=== PATIENT | male | born 1965 | race Caucasian/White ===

== ENCOUNTER 2016-11-06 13:58 | Inpatient (IN) | payer OTHER ==
[~2016-11-06] VITALS: Ht 175.3 cm; Wt 86.6 kg
[2016-11-07 00:06] LABS: *AMPHETAMINE, URINE NEGATIVE (NEGATIVE); *BARBITURATE, URINE NEGATIVE (NEGATIVE); *CANNABINOID, URINE NEGATIVE (NEGATIVE); *COCCAINE, URINE NEGATIVE (NEGATIVE); *OPIATE, URINE NEGATIVE (NEGATIVE); *PHENCYCLIDINE SCREEN,URINE NEGATIVE (NEGATIVE)
--- NOTE | 2016-11-07 00:15 | NUR ---
Intake Assessment Assessment done at intake office. Patient is alert & oriented x4. Pt is ambulatory with a steady gait. Speech is clear and audible. Pt is able to answer questions. Pt appears anxious and is cooperative during interviews. Vitals noted B/P 154/92, CA 74, RR 16, Temp 96.8, O2Sat 97%. Pt is here for ETOH dependence. No seizure history noted. Pt has allergies to Penicillin. Pt brought home medications. Explained to pt unit protocols. Pt verbalized understanding.
[2016-11-07] MEDS ORDERED: MAGNESIUM HYDROXIDE 30 ML LIQUID UDC PO PRN (00:45)
[2016-11-07] MEDS ORDERED: LORAZEPAM 1 MG TABLET PO PRN (00:45)
[2016-11-07] MEDS ORDERED: HYDROXYZINE PAMOATE 25 MG CAPSULE PO PRN (00:45)
[2016-11-07] MEDS ORDERED: LORAZEPAM 2 MG/1 ML VIAL IM PRN (00:45)
[2016-11-07] MEDS ORDERED: MAG HYDROX/AL HYDROX/SIMETH 30 ML LIQUID UDC PO PRN (00:45)
[2016-11-07] MEDS ORDERED: THIAMINE HCL 200 MG/2 ML VIAL IM ONE (00:45)
[2016-11-07] MEDS ORDERED: LOPERAMIDE HCL 2 MG CAPSULE PO PRN ×2 (00:45)
[2016-11-07] MEDS ORDERED: diphenhydrAMINE 50 MG CAPSULE PO PRN (00:45)
[2016-11-07] MEDS ORDERED: MIRALAX 17 GM POWD.PACK PO PRN (00:45)
[2016-11-07] MEDS ORDERED: DICYCLOMINE HCL 20 MG TABLET PO PRN (00:45)
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
--- NOTE | 2016-11-07 01:30 | NUR ---
Pt reported that he is on Coumadin for DVT. Pt last dose taken was couple of days prior to admission. Pt cannot remember exact day.
[2016-11-07 01:32] LABS: BASOPHILS # (AUTO) 0.1 K/uL (0.0-8.0); EOSINOPHILS # (AUTO) 0.1 K/uL (0.0-0.7); EOSINOPHILS % (AUTO) 2.1 % (0.0-7.0); HEMOGLOBIN 13.5 G/DL (14.0-18.0); LYMPHOCYTES # (AUTO) 2.2 K/UL (0.8-4.8); LYMPHOCYTES % (AUTO) 34.4 % (20.5-51.5); MEAN CORPUSCULAR HEMOGLOBIN 33.4 UUG (27.0-31.0); MEAN CORPUSCULAR HGB CONC 35 g/dL (32.0-37.0); MEAN CORPUSCULAR VOLUME 96.4 FL (82.0-92.0); MONOCYTES # (AUTO) 0.6 K/UL (0.1-1.30); MONOCYTES % (AUTO) 8.7 % (0.0-11.0); NEUTROPHILS # (AUTO) 3.5 K/UL (1.8-8.9); NEUTROPHILS % (AUTO) 53.8 % (38.5-71.5); PLATELET COUNT (AUTO) 315 K/UL (150-450); RED BLOOD CELL COUNT(AUTO) 4.04 MIL/UL (4.7-6.1); WHITE BLOOD COUNT (AUTO) 6.5 K/UL (4.0-11.2)
[2016-11-07] MEDS: IBUPROFEN 400 MG TABLET PO PRN ×2 (01:33→18:02)
[2016-11-07] MEDS: ONDANSETRON ODT 4 MG TAB.RAPDIS SL PRN ×2 (01:34→09:32)
[2016-11-07] MEDS: CLONIDINE HCL 0.1 MG TABLET PO PRN (01:34)
--- NOTE | 2016-11-07 01:34 | NUR ---
PRN Clonidine, Motrin & Zofran Patient complains of sweating, anxiety, 8/10 generalized body aches & nausea. Patient appears anxious in bed with facial grimacing noted. PRN Clonidine, Motrin & Zofran SL administered as ordered. Will continue to monitor patient.
[2016-11-07] MEDS ORDERED: ONDANSETRON ODT 4 MG TAB.RAPDIS ONE (01:36)
[2016-11-07] MEDS ORDERED: THIAMINE HCL 200 MG/2 ML VIAL ONE (01:36)
[2016-11-07] MEDS ORDERED: CLONIDINE HCL 0.1 MG TABLET ONE (01:37)
[2016-11-07] MEDS ORDERED: IBUPROFEN 400 MG TABLET ONE (01:38)
[2016-11-07] MEDS ORDERED: diphenhydrAMINE 50 MG CAPSULE ONE (01:38)
[2016-11-07 01:47] LABS: BILIRUBIN,TOTAL 0.2 mg/dL (0.2-1.0); CREATININE 0.7 mg/dL (0.6-1.3); MAGNESIUM 1.7 mg/dL (1.8-2.4); POTASSIUM 3.4 mmol/L (3.5-5.1); TOTAL PROTEIN, SERUM 6.4 g/dL (6.4-8.2)
[2016-11-07 01:58] LABS: THYROID STIMULATING HORMONE 1.085 mIU/mL (0.358-3.740)
[2016-11-07] MEDS: LORAZEPAM 1 MG TABLET PO PRN ×2 (02:24→09:32)
--- NOTE | 2016-11-07 02:24 | NUR ---
PRN Ativan Patient complains of symptoms of withdrawal. Pt noted with anxiety, fine tremors, sweating, nausea & moderate headache. CIWA 7 noted. Vitals WNL. B/P 111/65, HR 89, RR 16, O2Sat 98%. PRN Ativan 1mg administered as ordered. Will continue to monitor patient.
[2016-11-07] MEDS ORDERED: LORAZEPAM 1 MG TABLET ONE (02:28)
[2016-11-07] MEDS ORDERED: MAGNESIUM OXIDE 400 MG TABLET PO ONE (02:30)
[2016-11-07] MEDS ORDERED: POTASSIUM CHLORIDE 20 MEQ TAB.PRT.SR PO ONE (02:30)
--- NOTE | 2016-11-07 02:34 | NUR ---
Notified MD Contreras that patient's Mag level is 1.7L & Potassium level is 3.4. New orders were entered. Orders noted and carried out.
[2016-11-07] MEDS ORDERED: MAGNESIUM OXIDE 400 MG TABLET ONE (02:39)
[2016-11-07] MEDS ORDERED: POTASSIUM CHLORIDE 20 MEQ TAB.PRT.SR ONE (02:43)
--- NOTE | 2016-11-07 03:24 | NUR ---
PRN Reassessment Patient verbalized improved nausea, decreased in anxiey. Pt still with noted with very mild headache. Last COWS 3 noted. Will continue to monitor patient.
[2016-11-07] MEDS ORDERED: BISM262T15 PO (03:59)
[2016-11-07] MEDS ORDERED: HYDR-3657 PO (03:59)
[2016-11-07] MEDS ORDERED: WARF5TAB6 PO (03:59)
[2016-11-07] MEDS ORDERED: TRAZ-144 PO (03:59)
[2016-11-07] MEDS ORDERED: FLUO20TA28 PO (03:59)
[2016-11-07] MEDS ORDERED: RANI150C4 PO (03:59)
[2016-11-07] MEDS ORDERED: LISI2.5T2 PO (03:59)
[2016-11-07] MEDS ORDERED: NALT50TA PO (03:59)
[2016-11-07] MEDS ORDERED: WARF2.5T47 PO (03:59)
[2016-11-07] MEDS ORDERED: FLUO40CA49 PO (03:59)
[2016-11-07] MEDS ORDERED: ASPI1TAB PO (03:59)
[2016-11-07] MEDS ORDERED: NAPH15DR57 OP (03:59)
[2016-11-07] MEDS ORDERED: CLIN-63 PO (03:59)
[2016-11-07 04:00] VITALS: BP 108/56
--- NOTE | 2016-11-07 04:56 | NUR ---
Pt complains of 8/10 severe pain on left leg. Left leg appears swollen, red and warm. Dr. Contreras was notified and ordered to give a one time dose of Toradol 30mg IM to be given now and he will order Doppler FABY in am.
[2016-11-07] MEDS ORDERED: KETOROLAC TROMETHAMINE 30 MG INJ IM ONE (05:00)
[2016-11-07] MEDS ORDERED: KETOROLAC TROMETHAMINE 30 MG INJ ONE (05:14)
--- NOTE | 2016-11-07 05:17 | NUR ---
Toradol given Pt complains of 8/10 on left leg. Pt's left leg is swollen, red and warm to touch. Patient noted to be restless in bed. Pt noted with facial grimacing and moans d/t pain when moving his leg. Toradol 30mg IM administered on right deltoid as ordered. Will reassess in 1 hour. Will continue to monitor patient.
--- NOTE | 2016-11-07 06:17 | NUR ---
PRN Reassessment Patient asleep in bed at this time and appears comfortable. No facial grimacing noted. Pt show no s/s of distress. Safety measures in place. Will continue to monitor patient.
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
[2016-11-07 08:00] VITALS: BP 117/85
[2016-11-07] MEDS ORDERED: DOCUSATE SODIUM 250 MG CAPSULE PO SCH (09:00)
[2016-11-07] MEDS: FOLIC ACID 1 MG TABLET PO SCH (09:27)
[2016-11-07] MEDS: THIAMINE HCL 100 MG TABLET PO SCH (09:27)
[2016-11-07] MEDS: MULTIVITAMINS,THERAPEUTIC TABLET PO SCH (09:27)
--- NOTE | 2016-11-07 09:32 | NUR ---
PRN ATIVAN Patient has CIWA 8, tremors, anxiety. PRN Ativan 1mg given. Will monitor effectiveness
--- NOTE | 2016-11-07 09:32 | NUR ---
PRN ONDANSETRON Patient complained of nausea. PRN ondansetron ODT given, willl monitor effectiveness.
--- NOTE | 2016-11-07 09:45 | NUR ---
START OF SHIFT Received report from shift mechanic nurse. Patient is 50 year old male admitted for medically supervised withdrawal from alcohol. Patient is full code with allergy to penicillin. On assessment this AM: CIWA: 8. Denies chest pain. Recent VS: 128/78 HR 69, R18, T98.4, 0/10 pain and 99% 02 sat room air. Complained of tremors, mild headache (declined prn pain med at this time), anxiety and nausea (prn ondansetron given). PRN Ativan 1mg po tab given, CIWA = 8. Med compliant with AM meds. Patient states he also takes albuterol about twice a day as needed but he ran out of his medication. No wheezing noted, lung sounds clear and 02 sat 96% on assessment (MD notified). Patient was encouraged to attend group meetings today. Will continue to monitor patient. Addendum: 11/07/16 at 1057 by MANDI MANJARREZ RN Patient also has BLE discoloration and edema. Patient reports pain on LLE. Pending ultrasound at this time.
--- NOTE | 2016-11-07 10:32 | NUR ---
DEFER PRN ATIVAN AND ONDANSETRON AND CIWA REASSESSMENT Patient noted laying in bed with eyes closed at this time. Patient appears calm with no respiratory distress.
[2016-11-07 12:00] VITALS: BP 150/82
[2016-11-07] MEDS: LORAZEPAM 1 MG TABLET PO SCH ×3 (12:34→20:36)
[2016-11-07] MEDS ORDERED: TRAZODONE 50 MG TABLET PO PRN (13:45)
[2016-11-07 16:00] VITALS: BP 155/84
--- NOTE | 2016-11-07 16:27 | NUR ---
PRN MAALOX Patient complained of heartburn, pt. received prn maalox. will monitor effective of medication.
[2016-11-07] MEDS ORDERED: WARFARIN SODIUM 5 MG TABLET PO SCH (17:00)
--- NOTE | 2016-11-07 17:27 | NUR ---
REASSESSMENT (PRN MAALOX) Patient reports heartburn resolved.
--- NOTE | 2016-11-07 18:02 | NUR ---
PRN IBUPROFEN Patient complained of LLE pain, 12/09 prn ibuprofen given, will monitor effectiveness of medication
[2016-11-07] MEDS: ENOXAPARIN SODIUM 100 MG/ML DISP.SYRIN SQ SCH (18:05)
--- NOTE | 2016-11-07 18:25 | NUR ---
END OF SHIFT Patient is 50 year old male admitted for medically supervised withdrawal from alcohol. Patient is full code with allergy to penicillin. Most recent CIWA: 3. Patient reports tremors. Patient is receiving routine Ativan po, patient reports it helps with the withdrawals. Patient reports poor appetite but tries to eat his rizwana. Patient denies n/v at this time. Med compliant this shift. PRN ibuprofen given for LLE pain 12/09. Ultrasound on L lower extremity with DVT result, MD aware, patient received his coumadin and enoxaparin as scheduled. plasma processorcage shift manager will continue to monitor patient.
--- NOTE | 2016-11-07 19:02 | NUR ---
REASSESSMENT (PRN IBUPROFEN) Patient reports pain decreased from 7/10 to 4/10.
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
[2016-11-07 20:00] VITALS: BP 142/90
[2016-11-07] MEDS ORDERED: Albuterol (20:21)
[2016-11-07] MEDS: TRAZODONE 100 MG TABLET PO PRN (20:35)
--- NOTE | 2016-11-07 20:35 | NUR ---
PRN Trazodone Patient requested medication for sleep. PRN Trazodone administered as ordered. Will continue to monitor patient.
[2016-11-07] MEDS: FAMOTIDINE 20 MG TABLET PO SCH (20:36)
[2016-11-07] MEDS ORDERED: ALBUTEROL SULFATE 2.5 MG/ 0.5 ML NEBU ONE (21:36)
[2016-11-07] MEDS ORDERED: IPRATROPIUM BROMIDE 0.5 MG/2.5 ML NEBU ONE (21:36)
--- NOTE | 2016-11-07 22:00 | NUR ---
PRN Reassessment Patient asleep in bed and appears comfortable. No shortness of breath noted. Respiration even & unlabored. Safety measures in place. Will continue to monitor patient.
[2016-11-08] VITALS: BP 118/76
[2016-11-08 04:00] VITALS: BP 141/92
[2016-11-08] MEDS: ENOXAPARIN SODIUM 100 MG/ML DISP.SYRIN SQ SCH ×2 (06:08→17:43)
[2016-11-08] MEDS: IBUPROFEN 400 MG TABLET PO PRN ×3 (06:09→20:27)
--- NOTE | 2016-11-08 06:09 | NUR ---
PRN Motrin Patient complains of 7/10 body aches. Pt noted with restlessness and facial grimacing. PRN Motrin administered as ordered. Will reassess in 1 hour. Will continue to monitor patient.
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
--- NOTE | 2016-11-08 07:09 | NUR ---
PRN Reassessment Pt verbalized relief, pt noted with a 4/10 generalized body aches. Patient lying in bed with eyes close. No facial grimacing noted at this time. Will continue to monitor patient.
[2016-11-08] MEDS ORDERED: ALBUTEROL SULFATE 2.5 MG/ 0.5 ML NEBU NEB SCH ×2 (07:35)
[2016-11-08] MEDS ORDERED: IPRATROPIUM BROMIDE 0.5 MG/2.5 ML NEBU NEB SCH ×2 (07:35)
[2016-11-08 08:00] VITALS: BP 133/97
[2016-11-08 08:03] LABS: CREATININE 0.8 mg/dL (0.6-1.3); MAGNESIUM 1.7 mg/dL (1.8-2.4); POTASSIUM 3.8 mmol/L (3.5-5.1)
[2016-11-08] MEDS ORDERED: TUBERCULIN,PURIF.PROT.DERIV. 5 TU/0.1 ML TEST ID ONE (09:00)
[2016-11-08] MEDS: THIAMINE HCL 100 MG TABLET PO SCH (09:24)
[2016-11-08] MEDS: ACETAMINOPHEN 325 MG TABLET PO PRN ×2 (09:24→22:58)
[2016-11-08] MEDS: MULTIVITAMINS,THERAPEUTIC TABLET PO SCH (09:24)
[2016-11-08] MEDS: FOLIC ACID 1 MG TABLET PO SCH (09:24)
[2016-11-08] MEDS: FAMOTIDINE 20 MG TABLET PO SCH ×2 (09:24→20:27)
--- NOTE | 2016-11-08 09:24 | NUR ---
patient complaining of generalized body pain and headache 01/09, Tylenol 650po given. Will notifiy MD for muscle relaxant. will monitor effectiveness of med.
[2016-11-08] MEDS: LORAZEPAM 1 MG TABLET PO SCH ×3 (09:25→20:27)
[2016-11-08] MEDS: LISINOPRIL 10 MG TABLET PO SCH (09:25)
--- NOTE | 2016-11-08 10:00 | NUR ---
START OF SHIFT Received report from warehouse worker 2nd shift nurse. Patient is 50 year old male admitted for medically supervised withdrawal from alcohol. Patient is full code with allergy to penicillin. On assessment this AM: CIWA: 2. Vitals WNL. Patient's main complaints are generalized body ache and headache 8/10 and weakness, denies SOB and chest pain. Patient was encouraged to drink fluids and given bottled drinks at bedside. Patient ate 35% of his breakfast. Med compliant with AM meds. PRN Tylenol given, notified about patient complaining of body aches. Patient was encouraged to attend group meetings today. Will continue to monitor patient.
--- NOTE | 2016-11-08 10:24 | NUR ---
REASSESSMENT PRN TYLENOL Patient reports decreased pain level after 1 hour, pain level from 8/10 to 6/10.
--- NOTE | 2016-11-08 10:50 | NUR ---
Therapist discussed group attendance with client, informing client that groups are held daily at 11am and 3:30pm. Therapist discussed some benefits of attending, and client related that he would think about attending group today.
[2016-11-08] MEDS ORDERED: BACLOFEN 20 MG TABLET PO PRN (11:30)
[2016-11-08 13:55] VITALS: BP 156/92
[2016-11-08 14:06] LABS: HEPATITIS B SURFACE AG Negative (Negative)
[2016-11-08] MEDS: CLONIDINE HCL 0.1 MG TABLET PO PRN (14:26)
--- NOTE | 2016-11-08 14:26 | NUR ---
PRN CLONIDINE AND IBUPROFEN AND BREATHING TREATMENT Patient complained of anxiety, pain /10 and SOB. Patient received clonidine (BP 151/89), ibuprofen and respiratory therapist administered breathing treatment.
[2016-11-08] MEDS: ALBUTEROL SULFATE 2.5 MG/ 0.5 ML NEBU NEB PRN (14:32)
[2016-11-08] MEDS: IPRATROPIUM BROMIDE 0.5 MG/2.5 ML NEBU NEB PRN (14:32)
[2016-11-08] MEDS ORDERED: MAGNESIUM OXIDE 400 MG TABLET PO ONE (15:00)
--- NOTE | 2016-11-08 15:26 | NUR ---
REASSESSMENT (PRN CLONIDINE AND IBUPROFEN AND BREATHING TREATMENT) Patient reported decreased anxiety, decreased pain 5/10 and improved breathing.
[2016-11-08 16:00] VITALS: BP 142/89
[2016-11-08] MEDS ORDERED: WARFARIN SODIUM 2 MG TABLET PO SCH (17:00)
[2016-11-08] MEDS ORDERED: WARFARIN SODIUM 5 MG TABLET PO SCH (17:00)
[2016-11-08] MEDS: WARFARIN SODIUM 5 MG TABLET PO SCH (17:21)
--- NOTE | 2016-11-08 17:25 | NUR ---
MD communication Pt c/o worsening pain in his left leg and intermittent chest pain. Dr Contreras notified, ordered toradol 30mg IM Q6H PRN pain, ECG stat. Orders entered, MD unable to enter orders.
--- NOTE | 2016-11-08 17:43 | NUR ---
PRN KETOROLAC IM injection Patient received prn ketorolac IM injection for pain 01/09. Will continue to monitor effectiveness of medication.
--- NOTE | 2016-11-08 18:43 | NUR ---
REASSESSMENT (PRN KETOROLOC IM INJECTION) Patient reports pain level decreased to 3/10 pain on his LLE.
--- NOTE | 2016-11-08 19:00 | NUR ---
Followed up with EKG, someone will come to the unit to perform procedure. Endorsed to charge nurse and oncoming nurse.
--- NOTE | 2016-11-08 19:24 | NUR ---
EKG done. Results shown Normal sinus rhythm, Normal ECG.
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
[2016-11-08 20:00] VITALS: BP 133/87
--- NOTE | 2016-11-08 20:27 | NUR ---
PRN Motrin Patient complains of 7/10 pain on left lower extremity and moderate headache. Patient noted to be restless with facial grimacing noted. PRN Motrin administered as ordered. Will reassess in 1 hour. Will continue to monitor patient.
[2016-11-08] MEDS: TRAZODONE 100 MG TABLET PO PRN (21:19)
--- NOTE | 2016-11-08 21:19 | NUR ---
PRN Trazodone Patient unable to fall asleep. Pt requesting medication to help her sleep. PRN Trazodone administered as ordered. Will continue to monitor.
--- NOTE | 2016-11-08 21:27 | NUR ---
PRN Reassessment Patient verbalized slight relief from pain on left leg and headache. Patient lying in bed awake and appears comfortable. Safety measures in place. Will continue to monitor.
--- NOTE | 2016-11-08 22:58 | NUR ---
PRN Tylenol & Vistaril Patient complains of mild headache and anxiety. Patient still awake at this time and appears anxious. PRN Tylenol and Vistaril administered as ordered. Will continue to monitor patient.
--- NOTE | 2016-11-09 | NUR ---
Vitals/CIWA deferred Patient refused vitals at this time. Unable to assess CIWA. Patient lying in bed with eyes close. No shortness noted. No s/s of distress. Safety measures in place. Will continue to monitor patient.
[2016-11-09 04:00] VITALS: BP 117/73
[2016-11-09] MEDS: ENOXAPARIN SODIUM 100 MG/ML DISP.SYRIN SQ SCH (06:11)
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
--- NOTE | 2016-11-09 07:43 | NUR ---
BEGINNING OF SHIFT Patient endorsement report received from shift production supervisor nurse, all pertinent information discussed. Patient is a 50 year old male admitted on 11/06/2016, with admitting Dx: ETOH dependence. Patient with ongoing 5 day Ativan Taper as ordered, and is scheduled to begin day 3 of taper. Patient with last ciwa score of: 4, as per shift production supervisor. Patient received PRN: Trazodone, Vistaril, Motrin and Tylenol during shift production supervisor, medications were effective, patient slept for 5 hours. Patient received in room, awake alert and oriented x4, educated regarding plan of care and medication regimen for the day with good verbal understanding. Safety measures in place. call light kept with in reach, will continue to monitor closely.
[2016-11-09 08:20] VITALS: BP 117/76
[2016-11-09 08:36] LABS: CREATININE 0.8 mg/dL (0.6-1.3); POTASSIUM 3.6 mmol/L (3.5-5.1)
[2016-11-09] MEDS: THIAMINE HCL 100 MG TABLET PO SCH (09:12)
[2016-11-09] MEDS: FAMOTIDINE 20 MG TABLET PO SCH ×2 (09:12→20:20)
[2016-11-09] MEDS: FOLIC ACID 1 MG TABLET PO SCH (09:12)
[2016-11-09] MEDS: MULTIVITAMINS,THERAPEUTIC TABLET PO SCH (09:12)
[2016-11-09] MEDS: LORAZEPAM 1 MG TABLET PO SCH ×4 (09:12→20:20)
[2016-11-09] MEDS: LISINOPRIL 10 MG TABLET PO SCH (09:13)
[2016-11-09 12:50] VITALS: BP 141/89
[2016-11-09] MEDS: GABAPENTIN 300 MG CAPSULE PO SCH ×2 (14:39→20:19)
[2016-11-09] MEDS: BACLOFEN 10 MG TABLET PO SCH ×2 (14:39→20:20)
--- NOTE | 2016-11-09 14:53 | NUR ---
Client stated he was not feeling well, but was encouraged by therapist to attend daily group sessions at 11am and 3:30pm.
[2016-11-09] MEDS: WARFARIN SODIUM 5 MG TABLET PO SCH (17:12)
[2016-11-09 17:34] VITALS: BP 143/85
--- NOTE | 2016-11-09 18:58 | NUR ---
END OF SHIFT Patient alert and oriented x4, vital signs were stable during shift. patient compliant with therapeutic plan of care. 0900 assessment patient presented with: tremors that can be felt but not seen,anxiety, mild agitation, mild nausea with ciwa score of: 9. 1300 assessment patient presented with: tremors that can be felt but not seen,anxiety, mild agitation, with ciwa score of: 8. 1700 assessment patient presented with: tremors that can be felt but not seen, barely sweating, mild anxiety, mild agitation and mild head fullness with ciwa score of: 6. Patient received no PRNs during shift. Patient encouraged to attend group therapies/sessions to learn new coping skills to prevent relapse. patient denies any SI/HI. safety measures in place. call light kept with in reach. patient endorsed to cook night nurse, all pertinent information discussed. will continue to monitor closely.
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
[2016-11-09 20:10] VITALS: BP 144/91
[2016-11-09] MEDS: ONDANSETRON ODT 4 MG TAB.RAPDIS SL PRN (20:19)
[2016-11-09] MEDS: KETOROLAC TROMETHAMINE 30 MG INJ IM PRN (20:21)
--- NOTE | 2016-11-09 20:25 | NUR ---
PRN Medication Administration Patient verbalizing pain due to a headache 8/10 and intermitted Nausea. PRN Zofran and Toradol IM administered with routine medications. All non pharmacological interventions noted not effective. All needs attended to promptly. Will continue to monitor.
[2016-11-09] MEDS: IPRATROPIUM BROMIDE 0.5 MG/2.5 ML NEBU NEB PRN (20:39)
[2016-11-09] MEDS: ALBUTEROL SULFATE 2.5 MG/ 0.5 ML NEBU NEB PRN (20:39)
--- NOTE | 2016-11-09 21:30 | NUR ---
PRN Medication Reassessment Patient is able to verbalize nausea and pain has subsided. PRN Zofran and Toradol noted to be effective. patient is able to verbalize pain is 2/10. All needs attended to promptly. Will continue to monitor.
[2016-11-09] MEDS: TRAZODONE 100 MG TABLET PO PRN (21:46)
--- NOTE | 2016-11-09 21:50 | NUR ---
PRN Medication Administration patient is verbalizing inability of falling asleep. All non pharmacological interventions noted not effective. PRN Trazodone given as per order. Will continue to monitor.
[2016-11-10 00:18] VITALS: BP 158/83
[2016-11-10] MEDS: CLONIDINE HCL 0.1 MG TABLET PO PRN (00:21)
--- NOTE | 2016-11-10 00:30 | NUR ---
PRN Medication Reassessment/PRN Medication Administration Patient noted awake for vitals and verbalizing "Im really sweaty and I have alot of anxiety." PRN Clonidine administered as per order. All non pharmacological interventions noted not effective. Patient also able to verbalize the trazodone helped me get some sleep and I still feel like I can go back to sleep. PRN trazodone noted to be effective. Will continue to monitor.
[2016-11-10] MEDS: ACETAMINOPHEN 325 MG TABLET PO PRN (00:58)
--- NOTE | 2016-11-10 00:59 | NUR ---
PRN Medication Administration Patient is verbalizing pain due to a headache of 6/10. PRN Tylenol administered as per orders. Will continue to monitor for effectiveness of medication.
[2016-11-10] MEDS: KETOROLAC TROMETHAMINE 30 MG INJ IM PRN ×3 (02:22→16:02)
--- NOTE | 2016-11-10 02:26 | NUR ---
PRN Medication Administration Patient noted awake and verbalizing increased pain 9/10 due to a headache. Patient is noted to be facial grimacing. PRN Toradol administered as per orders. Will continue to monitor.
[2016-11-10 04:20] VITALS: BP 136/89
--- NOTE | 2016-11-10 04:20 | NUR ---
PRN Medication Reassessment Patient noted awake for vitals and able to verbalize pain had subsided and patient was able to rest comfortably. Patient verbalized a tolerable pain level of 3/10. PRN Toradol and PRN Clonidine noted to be effective. Will continue to monitor.
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
--- NOTE | 2016-11-10 07:41 | NUR ---
BEGINNING OF SHIFT Patient endorsement report received from overnight houseperson nurse, all pertinent information discussed. Patient is a 50 year old male admitted on 11/06/2016, with admitting Dx: ETOH dependence. Patient with ongoing 5 day Ativan Taper as ordered, and is scheduled to begin day 4 of taper. Patient with last ciwa score of: 4, as per overnight houseperson. Patient received PRN: Trazodone, Zofran, Toradol x2 and Tylenol during overnight houseperson, medications were effective, patient slept for 5 hours. Patient received in room, awake alert and oriented x4, educated regarding plan of care and medication regimen for the day with good verbal understanding. Safety measures in place. call light kept with in reach, will continue to monitor closely.
[2016-11-10 08:22] VITALS: BP 125/82
[2016-11-10] MEDS: GABAPENTIN 300 MG CAPSULE PO SCH ×3 (08:42→20:16)
[2016-11-10] MEDS: FAMOTIDINE 20 MG TABLET PO SCH ×2 (08:42→20:16)
[2016-11-10] MEDS: MULTIVITAMINS,THERAPEUTIC TABLET PO SCH (08:42)
[2016-11-10] MEDS: BACLOFEN 10 MG TABLET PO SCH (08:42)
[2016-11-10] MEDS: THIAMINE HCL 100 MG TABLET PO SCH (08:42)
[2016-11-10] MEDS: LORAZEPAM 1 MG TABLET PO SCH ×3 (08:42→20:16)
[2016-11-10] MEDS: FOLIC ACID 1 MG TABLET PO SCH (08:43)
--- NOTE | 2016-11-10 08:43 | NUR ---
PRN TORADOL Patient c/o increase headache 02/09, provided with non pharmacological interventions with no relief, administered Toradol injection as ordered, procedure well tolerated, inj well tolerated, will monitor effectiveness of medication closely.
[2016-11-10] MEDS: LISINOPRIL 10 MG TABLET PO SCH (08:46)
--- NOTE | 2016-11-10 09:43 | NUR ---
TORADOL REASSESSMENT Patient reports medication with relief, one hour post administration current pain level 3/10 tolerable as per patient, encouraged increase in PO fluid intake as tolerated, will continue to monitor.
[2016-11-10] MEDS: ASPIRIN/ACETAMINOPHEN/CAFFEINE TABLET PO PRN (11:59)
--- NOTE | 2016-11-10 11:59 | NUR ---
PRN EXCEDRIN Patient c/o migraine 12/09, administered PRN Excedrin as ordered will monitor effectiveness of medication.
[2016-11-10] MEDS ORDERED: SUMATRIPTAN SUCCINATE 50 MG TABLET PO PRN (12:00)
--- NOTE | 2016-11-10 12:59 | NUR ---
EXCEDRIN REASSESSMENT Patient reports medication with no relief, current pain level 7/10 of migraine, notified Dr. Contreras, Per Dr. Contreras if Excedrin was ineffective to administered Imitrex, will continue to monitor closely.
--- NOTE | 2016-11-10 13:21 | NUR ---
PRN Pt with c/o migraine 12/09. Imitrex po prn per MD order given and tolerated well.
--- NOTE | 2016-11-10 13:25 | NUR ---
PRN Pt states feels constipated and did not have a bm today. MOM po prn per MD order given and tolerated well.
[2016-11-10] MEDS: IPRATROPIUM BROMIDE 0.5 MG/2.5 ML NEBU NEB PRN (13:30)
[2016-11-10] MEDS: ALBUTEROL SULFATE 2.5 MG/ 0.5 ML NEBU NEB PRN (13:30)
[2016-11-10 13:39] VITALS: BP 144/91
--- NOTE | 2016-11-10 14:01 | NUR ---
EXCEDRIN REASSESSMENT Patient reports medication with no relief, current pain level 12/09 of migraine, notified Dr. Contreras, Per Dr. Contreras if Excedrin was ineffective to administered Imitrex, will continue to monitor closely. Addendum: 11/10/16 at 1402 by KIMI GOLDSTEIN LVN disregard note above, duplicate note.
--- NOTE | 2016-11-10 14:21 | NUR ---
IMITREX REASSESSMENT Patient reports medication was somewhat effective, current head ache pain level is 5/10, MD aware will continue to monitor.
[2016-11-10] MEDS: BACLOFEN 20 MG TABLET PO SCH ×2 (14:39→20:16)
[2016-11-10] MEDS ORDERED: BACLOFEN 10 MG TABLET PO SCH (15:00)
[2016-11-10] MEDS ORDERED: AMLODIPINE 5 MG TABLET PO ONE (15:00)
[2016-11-10] MEDS ORDERED: PROMETHAZINE HCL 25 MG/1 ML VIAL IM ONE (15:30)
--- NOTE | 2016-11-10 16:02 | NUR ---
TORADOL/PHENERGAN REASSESSMENT Patient reports headache increased in pain current pain level 9/10, Notified Dr. edmondson with new orders, as per MD patient to receive another dose of Toradol 30mg IM injection, along with one time order of Phenergan, will continue to monitor closely. safety measures in place. patient denies dizziness, or blurred vision, will continue to monitor closely.
[2016-11-10] MEDS: WARFARIN SODIUM 5 MG TABLET PO SCH (16:04)
--- NOTE | 2016-11-10 17:02 | NUR ---
PHENERGAN/TORADOL REASSESSMENT Patient reports medication somewhat effective, " my head feels better but it still hurts a bit" current pain level 4/10, tolerable as per patient, will continue to monitor.
[2016-11-10 17:46] VITALS: BP 152/92
--- NOTE | 2016-11-10 19:12 | NUR ---
END OF SHIFT Patient alert and oriented x4, vital signs were stable during shift. patient compliant with therapeutic plan of care. 0900 assessment patient presented with: Tremors that can be felt but not seen, barely sweating, anxiety and headache with ciwa score of: 8; 1300 assessment patient presented with: tremors that can be felt but not seen, mild anxiety and moderate head ache with ciwa score of: 5; 1700 assessment patient presented with: tremors that can be felt but not seen, mild anxiety and moderate headache with ciwa score of: 5. Patient with multiple episodes of increase in head ache, pain level ranging from 9 to tolerable level as per patient of 4 during shift. During shift patient was administered: Imitrex, Toradol x2, Phenergan, Excedrin, medication were somewhat effective, patient was also administered MOM will endorse to security shift manager nurse to follow up on effectiveness of medication. `11 Patient encouraged to attend group therapies/sessions to learn new coping skills to prevent relapse. patient denies any SI/HI. safety measures in place. call light kept with in reach. patient endorsed to security shift manager nurse, all pertinent information discussed. will continue to monitor closely.
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
[2016-11-10] MEDS ORDERED: SUMATRIPTAN SUCCINATE 50 MG TABLET PO ONE (20:00)
[2016-11-10 20:14] VITALS: BP 150/95
[2016-11-11] VITALS (7 sets, daily range): BP systolic 130–166; BP diastolic 81–103
[2016-11-11] MEDS: TRAZODONE 100 MG TABLET PO PRN ×2 (00:47→21:45)
[2016-11-11] MEDS: ASPIRIN/ACETAMINOPHEN/CAFFEINE TABLET PO PRN ×2 (00:47→14:02)
--- NOTE | 2016-11-11 00:50 | NUR ---
PRN Medication Administration Patient is noted awake and verbalizing pain 7/10 due to a headache. patient also verbalizing inability of falling back to sleep. PRN Excedrin and Trazodone administered as per orders. Will continue to monitor.
[2016-11-11] MEDS: ALBUTEROL SULFATE 2.5 MG/ 0.5 ML NEBU NEB PRN ×2 (01:28→09:58)
[2016-11-11] MEDS: IPRATROPIUM BROMIDE 0.5 MG/2.5 ML NEBU NEB PRN ×2 (01:28→09:58)
--- NOTE | 2016-11-11 02:00 | NUR ---
PRN Medication Reassessment Patient noted in bed sleeping. Breathing even and non labored. Patient was given PRN Excedrin and Trazodone. Medication noted to be effective as evidence of patient resting in bed with no discomfort noted. Patient Respirations noted to be 16. All needs attended to promptly. Will continue to monitor.
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
--- NOTE | 2016-11-11 07:30 | NUR ---
START OF SHIFT Received patient in bed AOx4. Patient states he's been better but reports still not feeling completely normal. He reports shakes and headaches. Patient on 5 day Ativan taper. PRN Trazodone and Excedrin given per night nurse. Patient slept 6 hours. CIWA 4 per night nurse. Encouraged patient to increase fluid intake. Encouraged patient to notify RN if S/S of W/D worsen. Encouraged attendance of groups and activities. Will provide safe and supportive environment. Will monitor.
[2016-11-11] MEDS ORDERED: AMLODIPINE 5 MG TABLET PO SCH ×2 (09:00→21:00)
[2016-11-11] MEDS ORDERED: LORAZEPAM 1 MG TABLET PO SCH ×2 (09:00→21:00)
[2016-11-11] MEDS: FOLIC ACID 1 MG TABLET PO SCH (09:22)
[2016-11-11] MEDS: FAMOTIDINE 20 MG TABLET PO SCH ×2 (09:23→20:33)
[2016-11-11] MEDS: BACLOFEN 20 MG TABLET PO SCH ×2 (09:23→14:02)
[2016-11-11] MEDS: LISINOPRIL 10 MG TABLET PO SCH (09:23)
[2016-11-11] MEDS: GABAPENTIN 300 MG CAPSULE PO SCH ×3 (09:23→20:34)
[2016-11-11] MEDS: THIAMINE HCL 100 MG TABLET PO SCH (09:23)
[2016-11-11] MEDS: MULTIVITAMINS,THERAPEUTIC TABLET PO SCH (09:23)
[2016-11-11] MEDS ORDERED: SUMATRIPTAN SUCCINATE 50 MG TABLET PO ONE (09:30)
--- NOTE | 2016-11-11 11:37 | NUR ---
5 Liters of Oxygen NC applied to patient per Dr. Contreras. patient complained of headache 01/09. Will monitor.
--- NOTE | 2016-11-11 14:03 | NUR ---
PRN MEDICATIONS PRN Excedrin given for c/o headache 8/10 on pain scale. Will reassess
--- NOTE | 2016-11-11 14:40 | NUR ---
PRN REASSESSMENT Patient states he feels no relief of his headache. Will administer Imitrex as ordered
[2016-11-11] MEDS: SUMATRIPTAN SUCCINATE 50 MG TABLET PO PRN ×2 (15:41→21:45)
--- NOTE | 2016-11-11 15:43 | NUR ---
PRM IMITREX PRN IMITREX 50 mg administered for 02/09 headache. Primary nurse to reassess.
--- NOTE | 2016-11-11 16:11 | NUR ---
PRN REASSESSMENT Patient states his headache is now 7/10. Encouraged patient to increase fluid intake. Will continue to monitor
[2016-11-11] MEDS: WARFARIN SODIUM 5 MG TABLET PO SCH (16:14)
--- NOTE | 2016-11-11 16:15 | NUR ---
Patient reports chest pain. Notified Dr. Contreras. New orders entered. Addendum: 11/11/16 at 1639 by CARYL HYLTON RN breathing even and unlabored. 3 L o2 NC administered. No s/s of distress
[2016-11-11 17:13] LABS: CREATININE 1.1 mg/dL (0.6-1.3); POTASSIUM 4.4 mmol/L (3.5-5.1)
[2016-11-11 17:25] LABS: MAGNESIUM 1.7 mg/dL (1.8-2.4)
[2016-11-11] MEDS ORDERED: SUMATRIPTAN SUCCINATE 6 MG/0.5 ML VIAL SQ ONE (18:15)
[2016-11-11] MEDS ORDERED: MAGNESIUM OXIDE 400 MG TABLET PO ONE (18:15)
[2016-11-11] MEDS ORDERED: BACLOFEN 20 MG TABLET PO PRN (18:30)
[2016-11-11] MEDS ORDERED: LORAZEPAM 1 MG TABLET PO ONE (18:30)
--- NOTE | 2016-11-11 18:37 | NUR ---
TROPONIN NEGATIVE. EKG NORMAL SINUS RHYTHM.
--- NOTE | 2016-11-11 18:38 | NUR ---
END OF SHIFT NOTE Patient continues on 5 day Ativan taper and tolerating well. Patient c/o headache during shift with minimal relief with medications. PRN Excedrin, Imitrex Po x2, and Imitrex subcutaneous given per Dr. orders. Breathing treatment administered per pt request. Patient c/o chest pain during shift, Labs drawn and EKG ordered. CIWA 8. Mild anxiety and tremors noted with h/a. 5 mg Coumadin given per orders for protein S deficiency and DVT to left left. All needs have been met. Safety measures in place. Will pass shift report to oncoming nurse.
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
[2016-11-11] MEDS: IBUPROFEN 400 MG TABLET PO PRN (20:33)
[2016-11-11] MEDS: VERAPAMIL 80 MG TABLET PO SCH (20:34)
--- NOTE | 2016-11-11 20:35 | NUR ---
PRN Medication Administration Patient verbalizing pain due to headache 02/09. PRN Motrin administered with routine medications. Will continue to monitor.
--- NOTE | 2016-11-11 21:45 | NUR ---
PRN Medication Reassessment/PRN Medication Administration Patient is verbalizing pain of 7/10 due to headache. PRN Motrin noted not effective. Patient is verbalizing inability of falling asleep. PRN Imitrex and Trazodone administered. Will continue to monitor.
--- NOTE | 2016-11-11 23:00 | NUR ---
PRN Medication Reassessment patient noted returning to room from unit kitchen. Patient is able to verbalize "I feel like I slept for hours. But Im going to sleep." PRN Trazodone and Imitrex noted effective. Will continue to monitor.
[2016-11-12 00:07] VITALS: BP 158/87
--- NOTE | 2016-11-12 00:10 | NUR ---
Vitals Patient awakened for vitals and is verbalizing pain of 8/10 due to headache. When returned to administer medications patient noted to be sleeping. Breathing even and non labored with no facial grimacing noted. Patient continue to sleep well with no interruptions noted. Will continue to monitor.
[2016-11-12 04:20] VITALS: BP 136/80
--- NOTE | 2016-11-12 07:00 | NUR ---
Start of Shift Endorsement received from nightshift nurse. Pt is a 50 y/o male admitted for alcohol dependence. Pt has been placed on a 5 day Ativan taper. Pt is moderately withdrawing at this time AEB CIWA 6 at 0400. Pt received PRN Motrin, Trazodone and Imitrex. Pt reports sleeping 5 hours. PT complains of a migraine that has been bothering him for 2 days. VS WNL, Full code. PT is alert and oriented x4. Pt is in STABLE condition at this time. Remains compliant with medication and diet regimen. All needs have been met, All safety measures in place per hospital policy. Bed in lowest position, side rails up x2, call-light within reach. Will continue to monitor
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
[2016-11-12 08:00] VITALS: BP 136/82
--- NOTE | 2016-11-12 08:10 | NUR ---
PRN Toradol Pt reports 12/09 migraine. Administered Toradol 30mg per Md orders. will re-assess.
[2016-11-12] MEDS: FOLIC ACID 1 MG TABLET PO SCH (08:13)
[2016-11-12] MEDS: KETOROLAC TROMETHAMINE 30 MG INJ IM PRN ×3 (08:13→20:45)
[2016-11-12] MEDS: THIAMINE HCL 100 MG TABLET PO SCH (08:13)
[2016-11-12] MEDS: LISINOPRIL 10 MG TABLET PO SCH (08:13)
[2016-11-12] MEDS: MULTIVITAMINS,THERAPEUTIC TABLET PO SCH (08:13)
[2016-11-12] MEDS: FAMOTIDINE 20 MG TABLET PO SCH ×2 (08:13→20:22)
[2016-11-12] MEDS: GABAPENTIN 300 MG CAPSULE PO SCH ×3 (08:13→20:22)
[2016-11-12] MEDS: VERAPAMIL 80 MG TABLET PO SCH ×3 (08:14→20:23)
--- NOTE | 2016-11-12 08:30 | NUR ---
Medication Re-assessment Pt reports 07/12 at this time. Medication was effective.
[2016-11-12] MEDS ORDERED: LORAZEPAM 1 MG TABLET PO SCH (09:00)
[2016-11-12] MEDS ORDERED: AMLODIPINE 5 MG TABLET PO SCH (09:00)
[2016-11-12 12:00] VITALS: BP 120/75
[2016-11-12 13:57] LABS: *AMPHETAMINE, URINE NEGATIVE (NEGATIVE); *BARBITURATE, URINE NEGATIVE (NEGATIVE); *CANNABINOID, URINE NEGATIVE (NEGATIVE); *COCCAINE, URINE NEGATIVE (NEGATIVE); *OPIATE, URINE NEGATIVE (NEGATIVE); *PHENCYCLIDINE SCREEN,URINE NEGATIVE (NEGATIVE)
--- NOTE | 2016-11-12 14:30 | NUR ---
PRN Toradol Administered PRN Toradol 30mg for 12/09. Will re-assess.
--- NOTE | 2016-11-12 14:55 | NUR ---
Medication Re-assessment PT reports 10/09 headache. Medication was ineffective. Md has been notified.
[2016-11-12 16:00] VITALS: BP 128/89
[2016-11-12] MEDS ORDERED: SUMATRIPTAN SUCCINATE 6 MG/0.5 ML VIAL SQ ONE (16:15)
[2016-11-12] MEDS: WARFARIN SODIUM 5 MG TABLET PO SCH (16:32)
--- NOTE | 2016-11-12 18:53 | NUR ---
End of Shift Endorsement given to nightshift nurse. Pt is a 50 y/o male admitted for alcohol dependence. Pt has been placed on a 5 day Ativan taper. Pt is moderately withdrawing at this time AEB CIWA 5 at 1600. Pt received PRN Toradol x2 and Imitrex for migraine headache. Pt remained in his room, preferring to rest rather than participate in groups and activities. Encouraged pt to participate in groups. Pt is on 8L of oxygen per MD orders. Intake: 3750ml, Void x10, BM x0. Educated pt on medication S/E. Pt is scheduled to be discharged on 11/13/16. All documentation has been completed, discharge education has been completed. VS WNL, Full code. PT is alert and oriented x4. Pt is in STABLE condition at this time. Remains compliant with medication and diet regimen. All needs have been met, All safety measures in place per hospital policy. Bed in lowest position, side rails up x2, call-light within reach. Will continue to monitor
--- NOTE | 2016-11-12 18:53 | NUR ---
START OF SHIFT NOTE: Report received from day shift nurse. Endorsed patient is a 50 year old male admitted to [facility] on 11/06/2016 for Alcohol Dependence. Patient completed 5 day Ativan taper on 11/11/2016, tolerated well. Patient remains compliant with medications and diet regimen. Patient reported allergy to "Penicillin". Patient is on Full Code and Regular Diet. Patient placed on Fall and Seizures Precautions. Patient denies a history of withdrawal-induced seizures. PMH: Alcohol Use Disorder, Protein S deficiency, History of DVT, Anxiety disorder, Depressive disorder, Asthma, Hypertension. Past surgical History: "L knee surgery". Last CIWA 5 @1600. VS:T:97.4; HR::70; BP:133/89; O2SAT: 95%; Pain level "8/10". Patient received PRN Toradol x2 IM 10mg/1ml as ordered. Patient is on 8L of Oxygen as ordered. Patient will discharging tomorrow as scheduled by MD's order. UDS test results placed to chart. All needs met. Safety measures in the place. Call light within reach, bed in the lowest position and locked, padded rails up x2. Will continue to monitor closely. Addendum: 11/13/16 at 0540 by MAXWELL SETH RN Patient received PRN Toradol x2 IM 30mg/1ml as ordered for "headache".
[2016-11-12 20:00] VITALS: BP 130/89
[2016-11-12] MEDS ORDERED: TRAZ-147 PO (20:14)
[2016-11-12] MEDS ORDERED: GABA-534 PO ×2 (20:14)
[2016-11-12] MEDS ORDERED: Aspirin/Acetaminophen/Caffeine PO (20:14)
[2016-11-12] MEDS ORDERED: IBUP-1481 PO (20:14)
[2016-11-12] MEDS ORDERED: VERA80TA2 PO (20:14)
[2016-11-12] MEDS ORDERED: HYDR-3895 PO (20:14)
[2016-11-12] MEDS ORDERED: SUMA50TA PO (20:14)
[2016-11-12] MEDS ORDERED: WARF5TAB77 PO (20:14)
[2016-11-12] MEDS ORDERED: LISI10TA5 PO (20:14)
--- NOTE | 2016-11-12 20:45 | NUR ---
PRN TORADOL 30 MG/1ML IM ADMINISTRATION Patient c/o "severe headache - 02/09" and asked aid. Patient assessed. VS:T:97.4; HR::70; BP:133/89; O2SAT: 95%; Pain level "01/09". PRN Toradol 30 mg/1ml IM administrated on RDM as ordered. Patient tolerated well. Safety measures in the place. Call light within reach, bed in the lowest position and locked, padded rails up x2. Will continue to monitor closely.
--- NOTE | 2016-11-12 21:45 | NUR ---
RE-ASSESSMENT Patient pain level"3/10". PRN Toradol was effective. All needs met. Safety measures in the place. Call light within reach, bed in the lowest position, and locked, padded bed rails up x2. Will continue to monitor closely.
[2016-11-12] MEDS: TRAZODONE 100 MG TABLET PO PRN (22:19)
--- NOTE | 2016-11-12 22:19 | NUR ---
PRN TRAZODONE 100 MG PO ADMINISTRATION Patient c/o insomnia and ask aid. Patient 's assessed. VSWNL. PRN Trazodone 100 mg PO administrated as ordered with full glass of water. All needs met. Safety measures in the place. Call light within reach, bed in the lowest position, and locked, padded bed rails up x2. Will continue to monitor closely.
--- NOTE | 2016-11-12 23:19 | NUR ---
RE-ASSESSMENT Patient is sleeping. Respirations even and unlabored. RR: 15. PRN Trazodone PO was effective. All needs met. Safety measures in the place. Call light within reach, bed in the lowest position, and locked, padded bed rails up x2. Will continue to monitor closely.
[2016-11-13] VITALS: BP 120/72
[2016-11-13] MEDS: ALBUTEROL SULFATE 2.5 MG/ 0.5 ML NEBU NEB PRN (02:08)
[2016-11-13] MEDS: IPRATROPIUM BROMIDE 0.5 MG/2.5 ML NEBU NEB PRN (02:08)
[2016-11-13] MEDS: KETOROLAC TROMETHAMINE 30 MG INJ IM PRN (03:47)
--- NOTE | 2016-11-13 03:47 | NUR ---
PRN TORADOL 30 MG/1ML IM ADMINISTRATION Patient c/o " headache - 8" and asked aid. Patient assessed. VS:T:97.9; HR: 80; BP:122/82; O2SAT: 97%; Pain level "810". PRN Toradol 30 mg/1ml IM administrated on LDM as ordered. Patient tolerated well. Safety measures in the place. Call light within reach, bed in the lowest position and locked, padded rails up x2. Will continue to monitor closely.
[2016-11-13 04:00] VITALS: BP 122/82
--- NOTE | 2016-11-13 04:47 | NUR ---
RE - ASSESSMENT Patient is sleeping. Respirations unlabored and even. RR: 16. PRN Toradol was effective. Safety measures in the place. Call light within reach, bed in the lowest position and locked, padded rails up x2. Will continue to monitor closely.
--- NOTE | 2016-11-13 07:18 | NUR ---
END OF SHIFT NOTE: Patient endorsed to day shift nurse in stable condition. Report given. Patient is a 50 year old male admitted to [facility] on 11/06/2016 for Alcohol Dependence. Patient completed 5 day Ativan taper on 11/11/2016, tolerated well. Patient remains compliant with medications and diet regimen. Patient reported allergy to "Penicillin". Patient is on Full Code and Regular Diet. Patient placed on Fall and Seizures Precautions. Patient denies a history of withdrawal-induced seizures. PMH: Alcohol Use Disorder, Protein S deficiency, History of DVT, Anxiety disorder, Depressive disorder, Asthma, Hypertension. Past surgical History: "L knee surgery". Last CIWA 10 at 0400. During client technical specialist patient presented with anxiety, agitation, nervousness, moderate severe headache, tremors that can felt, and sweats. VS at 0400: T:97.9; HR::80; BP:122/82; O2SAT: 97%. Pain level "8/10". PRN Toradol x2 administrated to patient were effective. Respiratory treatment done by RT. Patient's on 2L of Oxygen as ordered. Patient will discharging on 11/13/2016 per MD's order. UDS test results placed to chart. Patient slept 5 hours, intake 2,785 ml, voided x5. All needs met. Safety measures in the place by hospital policy: bed in the lowest position, and locked, bed rails up x2.
--- NOTE | 2016-11-13 07:30 | NUR ---
start of shift note: received pt from night cleaner nurse, pt is in stable condition at this time no s/s of pain or discomfort. pt is admitted to [facility] for ETOH withdrawal/dependence. pt is set for discharge today. will assist pt in discharging and will continue to monitor pt for any changes. pt slpet for 5 hrs and last ciwa was 10 d/t chronic headache
[2016-11-13] MEDS ORDERED: FOLI1TAB16 PO (09:07)
[2016-11-13] MEDS: THIAMINE HCL 100 MG TABLET PO SCH (10:13)
[2016-11-13] MEDS: MULTIVITAMINS,THERAPEUTIC TABLET PO SCH (10:13)
[2016-11-13] MEDS: GABAPENTIN 300 MG CAPSULE PO SCH (10:13)
[2016-11-13] MEDS: VERAPAMIL 80 MG TABLET PO SCH (10:13)
[2016-11-13] MEDS: FOLIC ACID 1 MG TABLET PO SCH (10:13)
[2016-11-13 10:14] VITALS: BP 128/86
[2016-11-13] MEDS: LISINOPRIL 10 MG TABLET PO SCH (10:14)
[2016-11-13] MEDS: FAMOTIDINE 20 MG TABLET PO SCH (10:14)
--- NOTE | 2016-11-13 10:32 | NUR ---
discharge note: pt left the unit in stable condition no s/s of pain, discomfort , or any withdrawal symptoms. pt teaching administered and pt verbalized understanding. pt left the unit with V/S WNL and all personal belongings. pt will be transferred to [facility] via private car
== END 2016-11-13 10:32 | disposition other institution (70) | DRG 895 ==
LOC: SRC 23:47
PROVIDERS: ADMIT Internal Medicine; ATTEND Internal Medicine
PROC: HZ2ZZZZ Detoxification Services for Substance Abuse Treatment (ICD-10-PCS; principal; 2016-11-06)
PROC: 3E013GC Introduction of Other Therapeutic Substance into Subcutaneous Tissue, Percutaneous Approach (ICD-10-PCS; 2016-11-07)
PROC: HZ31ZZZ Individual Counseling for Substance Abuse Treatment, Behavioral (ICD-10-PCS; 2016-11-08)
DX: F10.230 Alcohol dependence with withdrawal, uncomplicated (principal); D68.59 Other primary thrombophilia; I82.432 Acute embolism and thrombosis of left popliteal vein; Y90.8 Blood alcohol level of 240 mg/100 ml or more; Z81.1 Family history of alcohol abuse and dependence; Z83.2 Family history of diseases of the blood and blood-forming organs and certain disorders involving the immune mechanism; Z81.8 Family history of other mental and behavioral disorders; Z86.718 Personal history of other venous thrombosis and embolism; Z79.01 Long term (current) use of anticoagulants; Z91.14 Patient's other noncompliance with medication regimen; E87.6 Hypokalemia; E83.42 Hypomagnesemia; D52.9 Folate deficiency anemia, unspecified; J45.20 Mild intermittent asthma, uncomplicated; F41.9 Anxiety disorder, unspecified; I10 Essential (primary) hypertension; G44.009 Cluster headache syndrome, unspecified, not intractable; F32.9 Major depressive disorder, single episode, unspecified
CPT/HCPCS: 36415; 70030-TC; 80307; 82746; 83690; 83735; 84443; 85025; 85610; 86580; 86705; 87340; 87806; 93005; 93307; 94640; 94664; A4663; G0480; J1650; J1885; J2550; J3030; J3411; J3590; Q0162; Q0163

== ENCOUNTER 2016-11-27 10:50 | Inpatient (IN) | payer OTHER ==
[~2016-11-27] VITALS: Ht 175.3 cm; Wt 87.1 kg
[~2016-11-27 10:50] MED LIST: ASPI1TAB PO; Aspirin/Acetaminophen/Caffeine PO; BISM262T15 PO; FOLI1TAB16 PO; GABA-534 PO; HYDR-3895 PO; IBUP-1953 PO; LISI10TA5 PO; RANI150C4 PO; SUMA50TA PO; TRAZ-144 PO; TRAZ-147 PO; VERA80TA2 PO; WARF5TAB6 PO; WARF5TAB77 PO
--- NOTE | 2016-11-28 22:00 | NUR ---
Intake Assessment Assessment done at intake office. Patient is alert & oriented to name, place & situation. Pt is ambulatory with a steady gait. Patient appears intoxicated. Speech is slurred but audible. Pt appears slightly anxious and agitated. Patient is accompanied by her sister when he came in. Vitals noted B/P 142/79, PR91, RR 18, Temp 97.9, O2Sat 96%. Pt is here for ETOH. No seizure history noted. Pt is allergic to Penicillin. Pt brought his home medications. Explained to pt unit protocols. Pt informed on policy regarding destruction of any controlled substances/prescription brought to facility and handling of all medications. Pt verbalized understanding.
[2016-11-28] MEDS ORDERED: CLONIDINE HCL 0.1 MG TABLET PO PRN (22:45)
[2016-11-28] MEDS ORDERED: LORAZEPAM 1 MG TABLET PO PRN ×2 (22:45)
[2016-11-28] MEDS ORDERED: MAG HYDROX/AL HYDROX/SIMETH 30 ML LIQUID UDC PO PRN (22:45)
[2016-11-28] MEDS ORDERED: DICYCLOMINE HCL 20 MG TABLET PO PRN (22:45)
[2016-11-28] MEDS ORDERED: ONDANSETRON HCL 4 MG TABLET PO PRN (22:45)
[2016-11-28] MEDS ORDERED: diphenhydrAMINE 50 MG CAPSULE PO PRN (22:45)
[2016-11-28] MEDS ORDERED: ACETAMINOPHEN 325 MG TABLET PO PRN (22:45)
[2016-11-28] MEDS ORDERED: IBUPROFEN 400 MG TABLET PO PRN (22:45)
[2016-11-28] MEDS ORDERED: LORAZEPAM 2 MG/1 ML VIAL IM PRN (22:45)
[2016-11-28] MEDS ORDERED: LOPERAMIDE HCL 2 MG CAPSULE PO PRN ×2 (22:45)
[2016-11-28] MEDS ORDERED: MAGNESIUM HYDROXIDE 30 ML LIQUID UDC PO PRN (22:45)
[2016-11-28] MEDS ORDERED: MIRALAX 17 GM POWD.PACK PO PRN (22:45)
[2016-11-28] MEDS ORDERED: THIAMINE HCL 200 MG/2 ML VIAL IM ONE (22:45)
[2016-11-28] MEDS ORDERED: ONDANSETRON ODT 4 MG TAB.RAPDIS SL PRN (22:45)
[2016-11-28] MEDS: KETOROLAC TROMETHAMINE 30 MG INJ IM PRN (22:50)
--- NOTE | 2016-11-28 22:50 | NUR ---
PRN Toradol Patient is complaining of severe migraine. Patient is getting agitated and anxious. Patient refused other pain medications such as Motrin & Tylenol. Per pt, it will not work and he is demanding Toradol shot for pain. Dr. Reyes notified with new orders for Toradol 30mg IM Q6H for severe pain. PRN Toradol administered at left deltoid. Will monitor for effectiveness of medication.
[2016-11-28] MEDS ORDERED: KETOROLAC TROMETHAMINE 30 MG INJ ONE (22:57)
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
--- NOTE | 2016-11-28 23:50 | NUR ---
PRN Reassessment Patient asleep at this time and appears comfortable. No facial grimacing noted. Patient is not in any distress. Safety measures in place. Will continue to monitor patient.
[2016-11-28 23:51] LABS: *AMPHETAMINE, URINE NEGATIVE (NEGATIVE); *BARBITURATE, URINE NEGATIVE (NEGATIVE); *CANNABINOID, URINE NEGATIVE (NEGATIVE); *COCCAINE, URINE NEGATIVE (NEGATIVE); *OPIATE, URINE NEGATIVE (NEGATIVE); *PHENCYCLIDINE SCREEN,URINE NEGATIVE (NEGATIVE)
[2016-11-29] MEDS ORDERED: LISI2.5T2 PO (02:01)
[2016-11-29] MEDS ORDERED: ALBU8.5H8 IH (02:10)
[2016-11-29] MEDS ORDERED: [UNRECOGNIZED DRUG - REMARK] (02:10)
[2016-11-29 04:00] VITALS: BP 100/53
--- NOTE | 2016-11-29 07:08 | NUR ---
End of Shift Note: Patient is a 50 y/o male admitted at [facility] at approximately 2215 last night 11/28/16 for ETOH dependence. Patient was acutely intoxicated upon admission and was a poor historian. Patient was complaining of severe migraine last night and refused all his PRN pain medications. Pt demanded a Toradol shot for pain and Dr. Reyes was notified. New orders for Toradol was placed and was given to patient with relief. Initial CIWA is 8 presented with symptoms of moderate anxiety, agitation and moderately severe headache. Patient was able to sleep for a total of 6 hours. Pt consumed 360 ml of fluids. Voided 1x with no bowel movement. All needs attended & met. Encourage pt to increase fluid intake. Safety measures in place. Will endorse pt to day shift nurse.
--- NOTE | 2016-11-29 07:30 | NUR ---
Start of shift note; Patient is AOX4. Patient is a 50 year old male admitted on 11/27/16 for ETOH relapsed/supervised withdrawals. Patient reported history of hypertension. asthma, anxiety, depression, Pneumonia, knee surgery, left foot surgery. Patient is on a regular diet, allergic to penicillin, full code status. Skin is intact. Patient is complaining of headache/ generalized body aches. All safety measures secured. Will continue to monitor patient.
[2016-11-29 08:00] VITALS: BP 115/73
[2016-11-29] MEDS: THIAMINE HCL 100 MG TABLET PO SCH (08:13)
[2016-11-29] MEDS: FOLIC ACID 1 MG TABLET PO SCH (08:13)
[2016-11-29] MEDS: MULTIVITAMINS,THERAPEUTIC TABLET PO SCH (08:13)
[2016-11-29] MEDS: KETOROLAC TROMETHAMINE 30 MG INJ IM PRN ×2 (08:14→19:44)
--- NOTE | 2016-11-29 08:14 | NUR ---
PRN medication; Patient is complaining of generalized pain and headache rated 10/10 on pain scale. PRN Toradol 30mg IM on right deltoid. Will closely monitor patient for effectiveness of medication.
[2016-11-29 08:27] LABS: BASOPHILS % (AUTO) 0.7 % (0.0-2.0); EOSINOPHILS # (AUTO) 0.2 K/uL (0.0-0.7); EOSINOPHILS % (AUTO) 3.7 % (0.0-7.0); HEMATOCRIT 41.7 % (40-50); LYMPHOCYTES # (AUTO) 1.4 K/UL (0.8-4.8); LYMPHOCYTES % (AUTO) 23.3 % (20.5-51.5); MEAN CORPUSCULAR HEMOGLOBIN 32.4 UUG (27.0-31.0); MEAN CORPUSCULAR HGB CONC 34 g/dL (32.0-37.0); MEAN CORPUSCULAR VOLUME 96.8 FL (82.0-92.0); MONOCYTES # (AUTO) 0.6 K/UL (0.1-1.30); MONOCYTES % (AUTO) 10.6 % (0.0-11.0); NEUTROPHILS # (AUTO) 3.9 K/UL (1.8-8.9); NEUTROPHILS % (AUTO) 61.7 % (38.5-71.5); PLATELET COUNT (AUTO) 318 K/UL (150-450); RED BLOOD CELL COUNT(AUTO) 4.31 MIL/UL (4.7-6.1); WHITE BLOOD COUNT (AUTO) 6.1 K/UL (4.0-11.2)
[2016-11-29 08:28] LABS: BILIRUBIN,TOTAL 0.2 mg/dL (0.2-1.0); MAGNESIUM 1.8 mg/dL (1.8-2.4); POTASSIUM 4.1 mmol/L (3.5-5.1); TOTAL PROTEIN, SERUM 6.6 g/dL (6.4-8.2)
[2016-11-29] MEDS ORDERED: TUBERCULIN,PURIF.PROT.DERIV. 5 TU/0.1 ML TEST ID ONE (09:00)
[2016-11-29 09:10] LABS: THYROID STIMULATING HORMONE 1.473 mIU/mL (0.358-3.740)
--- NOTE | 2016-11-29 09:14 | NUR ---
Re-assessment; Patient states effectiveness of medication, patient reported pain 4/10 on pain scale. Will continue to monitor patient.
--- NOTE | 2016-11-29 10:15 | NUR ---
PRN medication; Patient's current CIWA score is 5 manifested by anxiety, diaphoresis, mild headache. PRN Ativan 1mg PO given for CIWA of 5. Will continue to monitor patient for effectiveness of medication.
--- NOTE | 2016-11-29 11:15 | NUR ---
Re-assessment; PRN Ativan is effective, CIWA score decreased to 3 from score of 5. Patient appears calm and comfortable at this time. Will continue to monitor patient.
[2016-11-29 12:00] VITALS: BP 122/74
[2016-11-29] MEDS: VERAPAMIL 80 MG TABLET PO SCH ×2 (12:59→16:41)
[2016-11-29 16:00] VITALS: BP 122/74
[2016-11-29] MEDS: GABAPENTIN 300 MG CAPSULE PO SCH ×2 (16:40→20:09)
[2016-11-29] MEDS: WARFARIN SODIUM 5 MG TABLET PO SCH (16:40)
[2016-11-29] MEDS: SUMATRIPTAN SUCCINATE 50 MG TABLET PO PRN (16:41)
--- NOTE | 2016-11-29 16:41 | NUR ---
PRN medication; Patient is complaining of migraine headache, PRN Imitrex 50mg PO given as ordered. Will continue to monitor patient for effectiveness of medication.
--- NOTE | 2016-11-29 17:41 | NUR ---
Re-assessment; PRN medication is effective, patient denies any migraine at this time.
--- NOTE | 2016-11-29 18:26 | NUR ---
End of shift note; Patient is AOX4. Patient remained compliant with treatment plan. Medications were effective in reducing withdrawal symptoms. Patient's vital signs remained within normal limits. All safety measures secured. Met all needs.
--- NOTE | 2016-11-29 19:15 | NUR ---
Start of Shift Note: Patient is a 50 y/o male admitted yesterday 11/28/16 for ETOH dependence. Patient reported relapsing yesterday and consumed 750ml of Vodka. Patient has medical history of HTN, Asthma, Protein S. deficiency, Anxiety, Depression, Pneumonia(October 2015), Knee Surgery(1994), Left foot surgery(1989). No seizure history noted. Patient is on a regular diet with allergies to Penicllin. Full Code status. Skin intact. Patient has no taper. PRN medications available for symptoms of withdrawal. Last CIWA is 3. Patient was given PRN Toradol, Immitrex and Ativan 1mg during day shift. Patient is alert & oriented x4. No shortness of breath noted. Respiration even & unlabored. Abdomen soft & non-distended. No nausea/vomiting noted. Patient complains of moderate headache, slight sweating and anxiety. No bilateral hand tremors noted. Safety measures in place. Encourage pt to increase fluid intake. Will continue to monitor patient.
--- NOTE | 2016-11-29 19:44 | NUR ---
PRN Toradol Patient complains of 7/10 headache. Patient appears restless with facial grimacing noted. PRn Toradol administered on left deltoid. Will monitor for effectiveness of medication.
[2016-11-29 19:45] VITALS: BP 135/79
[2016-11-29 20:00] VITALS: BP 135/79
[2016-11-29] MEDS: TRAZODONE 100 MG TABLET PO PRN (20:09)
--- NOTE | 2016-11-29 20:09 | NUR ---
PRN Trazodone Patient requesting for medication to help him sleep. PRN Trazodone administered as ordered. Will continue to monitor patient.
--- NOTE | 2016-11-29 20:44 | NUR ---
PRN Reassessment Patient verbalized relief from headache. Patient stated that headache has gotten a little better. PRN medication effective. Will continue to monitor patient.
[2016-11-30] VITALS: BP 115/72
--- NOTE | 2016-11-30 | NUR ---
Ciwa deferred Patient asleep at this time. Unable to assess for CIWA. Pt is not in any distress. Will continue to monitor patient.
[2016-11-30 04:00] VITALS: BP 118/76
--- NOTE | 2016-11-30 04:00 | NUR ---
Ciwa deferred Patient asleep at this time. Unable to assess for CIWA. Pt is not in any distress. Will continue to monitor patient.
[2016-11-30] MEDS: KETOROLAC TROMETHAMINE 30 MG INJ IM PRN ×2 (05:54→20:32)
--- NOTE | 2016-11-30 05:54 | NUR ---
PRN Toradol Patient woke up with complains of 8/10 headache. Patient appears restless with facial grimacing noted. PRN Toradol administered on right deltoid. Will monitor for effectiveness of medication.
--- NOTE | 2016-11-30 06:54 | NUR ---
PRN Reassessment Patient verbalized relief from headache. Patient lying in bed and appears comfortable. No facial grimacing noted. Will continue to monitor patient.
--- NOTE | 2016-11-30 06:59 | NUR ---
End of Shift Note: Patient had an uneventful night. Pt has no taper and he is only on PRN medications. Patient remained stable and Vitals remains WNL. Pt was given PRN Toradol 2x for headache and Trazodone for sleep during my shift. Pt remained compliant with medications. Pt still asleep at this time with no s/s of distress noted. Pt was able to sleep for a total of 9 hours. Consumed 1210 ml of fluids. Voided 1x with no bowel movement. All needs attended met. Safety measures in place. Will endorse pt to day shift nurse.
--- NOTE | 2016-11-30 07:22 | NUR ---
Start of shift note; Patient is AOX4. Patient is a 50 year old male admitted on 11/27/16 for ETOH relapsed/supervised withdrawals. Patient reported history of hypertension. asthma, anxiety, depression, Pneumonia, knee surgery, left foot surgery. Patient is on a regular diet, allergic to penicillin, full code status. Skin is intact. All safety measures secured. Will continue to monitor patient.
[2016-11-30 08:00] VITALS: BP 137/83
[2016-11-30] MEDS: VERAPAMIL 80 MG TABLET PO SCH ×3 (08:49→17:07)
[2016-11-30] MEDS: GABAPENTIN 300 MG CAPSULE PO SCH ×3 (08:49→20:29)
[2016-11-30] MEDS: THIAMINE HCL 100 MG TABLET PO SCH (08:49)
[2016-11-30] MEDS: MULTIVITAMINS,THERAPEUTIC TABLET PO SCH (08:49)
[2016-11-30] MEDS: LISINOPRIL 5 MG TABLET PO SCH (08:49)
[2016-11-30] MEDS: FOLIC ACID 1 MG TABLET PO SCH (08:49)
[2016-11-30] MEDS: SUMATRIPTAN SUCCINATE 50 MG TABLET PO PRN (09:13)
--- NOTE | 2016-11-30 09:13 | NUR ---
PRN medication; Patient is complaining of migraine headache. PRN Imitrex 50mg PO given to patient as per MD order. Will continue to monitor patient for effectiveness of medication.
[2016-11-30 10:08] LABS: HEPATITIS B SURFACE AG Negative (Negative)
--- NOTE | 2016-11-30 10:13 | NUR ---
Re-assessment; Patient states improvement of migraine headache. PRN Imitrex is effective.
--- NOTE | 2016-11-30 11:20 | NUR ---
MD order; Patient ordered CT head w/wo contrast for acute NICOLE h/o DVT, left inner cheek mass r/o mass, kylie sinus thrombosis. Started IV site on patient's left arm, 20G, no infiltration noted. Will closely monitor patient.
[2016-11-30] MEDS ORDERED: KETOROLAC TROMETHAMINE 60 MG INJ IM ONE ×2 (11:30→12:15)
[2016-11-30 12:00] VITALS: BP 126/88
--- NOTE | 2016-11-30 12:16 | NUR ---
MD order; MD ordered one time dose of Toradol injection IM 60mg for neck/head pain 10/10 on pain scale . Given as ordered. Will continue to monitor patient for effectiveness of medication.
--- NOTE | 2016-11-30 13:16 | NUR ---
Re-assessment; Patient stated decrease of neck/head pain of 4/10, rated on pain scale. Toradol IM medication is effective.
[2016-11-30] MEDS ORDERED: NORMAL SALINE FLUSH 10 ML DISP.SYRIN ONE (14:00)
[2016-11-30 16:00] VITALS: BP 129/74
[2016-11-30] MEDS: WARFARIN SODIUM 5 MG TABLET PO SCH (17:09)
--- NOTE | 2016-11-30 17:28 | NUR ---
CT result; Results showed unremarkable CT of the brain with and without contrast.
--- NOTE | 2016-11-30 18:33 | NUR ---
End of shift note; Patient is AOX4. Patient remained compliant with treatment plan. Medications were effective in reducing withdrawal symptoms. Patient's vital signs remained within normal limits. Patient denies pain at this time. All safety measures secured. Met all needs.
--- NOTE | 2016-11-30 19:15 | NUR ---
START OF SHIFT Received 50 year old male admitted on 11/27/16 for ETOH dependency. Pt is full code with allergy to PCN. Pt reports a PMHx of HTN, asthma, protein S deficiency, anxiety, depression, PNA, knee surgery and left foot surgery. Pt denies history of seizure. He reports drinking ETOH (vodka) 750 mL x1 day on 11/28/16. He is not on a scheduled taper but has PRN medications available. Per endorsement, pt received one time order of Toradol 60 mg x1 for headache and left cheek pain. Pt received CT scan, results were unremarkable. Pt is alert and oriented x4, breathing is even and unlabored, safety measures in place. Will continue to monitor.
[2016-11-30 20:00] VITALS: BP 120/79
[2016-11-30] MEDS: TRAZODONE 100 MG TABLET PO PRN (20:29)
--- NOTE | 2016-11-30 20:32 | NUR ---
PRN TRAZODONE/TORADOL Pt complains of 9/10 left cheek pain, and inability to sleep. PRN Trazodone and Toradol administered as ordered. Breathing is even and unlabored, safety measures in place. Will monitor effectiveness.
--- NOTE | 2016-11-30 21:32 | NUR ---
PRN TRAZODONE/TORADOL REASSESSMENT PRN medications effective. Pt is lying in bed with eyes closed noted to be asleep. Respirations 16, breathing is even and unlabored. No facial grimacing noted. Safety measures in place. Will continue to monitor.
--- NOTE | 2016-12-01 | NUR ---
VITALS REFUSED/CIWA DEFERRED 0000 vitals refused. CIWA deferred d/t pt lying in bed with eyes closed noted to be asleep. Respirations 16, breathing is even and unlabored. Will continue to monitor.
[2016-12-01] MEDS: HYDROXYZINE PAMOATE 25 MG CAPSULE PO PRN ×2 (03:23→13:16)
[2016-12-01] MEDS: PATIENT MAY USE OWN MED- MD OK INH PRN ×2 (03:25→13:17)
--- NOTE | 2016-12-01 03:25 | NUR ---
PRN INHALER/VISTARIL Pt complains of shortness of breath and anxiety. PRN Inhaler administered, pt reports relief from inhaler. PRN Vistaril administered as ordered. Will continue to monitor effectiveness of medication.
[2016-12-01 04:00] VITALS: BP 122/76
--- NOTE | 2016-12-01 04:25 | NUR ---
PRN VISTARIL REASSESSMENT PRN medication effective. Pt lying in bed with eyes closed noted to be asleep. Breathing even and unlabored, safety measures in place. Will monitor.
--- NOTE | 2016-12-01 07:10 | NUR ---
END OF SHIFT Pt is a 50 year old male admitted on 11/27/16 for ETOH dependency. Pt is full code with allergy to PCN. Pt reports a PMHx of HTN, asthma, protein S deficiency, anxiety, depression, PNA, knee surgery and left foot surgery. Pt denies history of seizure. At 2031 he received PRN Trazodone and Toradol, At 324 pt received PRN Vistaril and his Inhaler. He slept a total of 6 hrs, Intake: 1658mL, Void: x4, BM:0, CIWA: 3. Pt remains alert and oriented x4, breathing is even and unlabored,s afety measures in place. Endorsed to oncoming shift.
--- NOTE | 2016-12-01 07:36 | NUR ---
START OF SHIFT NOTE Received patient this morning AOx4. Patient presents fatigued and states he wants to keep sleeping and feels very tired. Patient placed on PRN medications only with no taper ordered. PRN Toradol, Trazodone, and Vistaril given per night nurse with effectiveness. Patient slept 6 hours. Last CIWA 3. Encouraged patient to increase fluid intake to facilitate detox. Encouraged patient to attend groups and activities. Will provide safe and supportive environment. Will monitor.
[2016-12-01 08:00] VITALS: BP 123/75
[2016-12-01] MEDS: MULTIVITAMINS,THERAPEUTIC TABLET PO SCH (08:22)
[2016-12-01] MEDS: GABAPENTIN 300 MG CAPSULE PO SCH ×3 (08:22→20:36)
[2016-12-01] MEDS: THIAMINE HCL 100 MG TABLET PO SCH (08:22)
[2016-12-01] MEDS: FOLIC ACID 1 MG TABLET PO SCH (08:22)
[2016-12-01] MEDS: LISINOPRIL 5 MG TABLET PO SCH (08:22)
[2016-12-01] MEDS: VERAPAMIL 80 MG TABLET PO SCH ×3 (08:23→17:08)
[2016-12-01] MEDS: KETOROLAC TROMETHAMINE 30 MG INJ IM PRN ×2 (11:03→17:09)
--- NOTE | 2016-12-01 11:04 | NUR ---
PRN MEDICATION PRN Toradol given for c/o left jaw pain 9/10 on pain scale. Will reassess
[2016-12-01] MEDS: SUMATRIPTAN SUCCINATE 50 MG TABLET PO PRN (11:48)
--- NOTE | 2016-12-01 11:48 | NUR ---
PRN REASSESSMENT Patient states the medication "dulled" his pain. He reports his pain is now 6/10 in his jaw. Will reassess
--- NOTE | 2016-12-01 11:49 | NUR ---
PRN MEDICATION PRN Imitrex given per Dr. Houston for patient's c/o headache 8/10 on pain scale. Will reassess
[2016-12-01 11:52] LABS: *AMPHETAMINE, URINE NEGATIVE (NEGATIVE); *BARBITURATE, URINE NEGATIVE (NEGATIVE); *CANNABINOID, URINE NEGATIVE (NEGATIVE); *COCCAINE, URINE NEGATIVE (NEGATIVE); *OPIATE, URINE NEGATIVE (NEGATIVE); *PHENCYCLIDINE SCREEN,URINE NEGATIVE (NEGATIVE)
[2016-12-01 12:00] VITALS: BP 136/74
--- NOTE | 2016-12-01 12:11 | NUR ---
PRN MEDICATION PRN Maalox given for c/o heart burn. Will reassess
--- NOTE | 2016-12-01 12:11 | NUR ---
PRN REASSESSMENT patient states his headache is now 5/10 on pain scale. will monitor
--- NOTE | 2016-12-01 13:00 | NUR ---
PRN REASSESSMENT Patient states heartburn has decreased.
--- NOTE | 2016-12-01 13:17 | NUR ---
PRN Albuterol, Clonidine, Vistaril Client reports dyspnea, irritability, cold/chills and anxiety. Vital T 98, P 66, RR 15, BP 134/88, spO2 @ 96% on RA. Albuterol inhaler 2 puffs, Clonidine 01.mg, and Vistaril 50mg administered. Primary nurse to reassess. Call light within reach.
[2016-12-01] MEDS ORDERED: SUMA50TA PO (14:00)
--- NOTE | 2016-12-01 14:00 | NUR ---
PRN REASSESSMENT Patient sleeping in bed with RR even and unlabored. Bed locked and in lowest position. No distress noted. Will monitor.
[2016-12-01 16:00] VITALS: BP 132/80
[2016-12-01] MEDS ORDERED: WARFARIN SODIUM 3 MG TABLET PO SCH (17:00)
--- NOTE | 2016-12-01 17:22 | NUR ---
PRN MEDICATION PRN Toradol IM and Miralax given. patient reports head and jaw pain 8/10 on painscale. He reports feeling "backed up" will reassess
--- NOTE | 2016-12-01 18:15 | NUR ---
PRN REASSESSMENT Patient states he has had no BM. He rates pain 6/10 on scale.
--- NOTE | 2016-12-01 18:35 | NUR ---
End of shift note Patient continues on PRNs only during shift. Patient scheduled for discharge tomorrow. Patient c/o headache and jaw pain during shift and managed with PRN medications. PRN Toradol x2, Imitrex, Maalox, Clonidine, Vistaril, Albuterol, and Miralax given during shift. Last PT 35.5 INR 3.45, Coumadin given as ordered. Last CIWA 5. Vital signs stable during shift. Patient did not attend groups or activities during shift and isolated self in room. All needs have been met. All safety measures in place. Will endorse to night nurse.
--- NOTE | 2016-12-01 19:15 | NUR ---
START OF SHIFT Received 50 year old male admitted on 11/27/16 for ETOH dependency. Pt is full code with allergy to PCN. Pt reports a PMHx of HTN, asthma, protein S deficiency, anxiety, depression, PNA, knee surgery and left foot surgery. Pt denies history of seizure. He reports drinking ETOH (vodka) 750 mL x1 day on 11/28/16. Per endorsement, pt received several PRN medications including Toradol x2, Imitrex, clonidine, maalox and miralax. He is scheduled to be DC tomorrow to home. Pt is alert and oriented x4, breathing is even and unlabored, safety measures in place. Will continue to monitor.
[2016-12-01 20:00] VITALS: BP 130/67
[2016-12-01] MEDS: TRAZODONE 100 MG TABLET PO PRN (20:36)
--- NOTE | 2016-12-01 20:36 | NUR ---
PRN TRAZODONE/MILK OF MAGNESIA Pt complains of constipation unrelieved by Miralax. Pt complains of inability to fall asleep. PRN Trazodone/Milk of Magnesia administered as ordered. Breathing even and unlabored, safety measures in place. Will monitor effectiveness.
--- NOTE | 2016-12-01 21:36 | NUR ---
PRN REASSESSMENT PRN Trazodone effective. Pt is lying in bed with eyes closed noted to be asleep. Respirations 16, breathing is even and unlabored, safety measures in place. Will continue to monitor effectiveness of Milk of Magnesia.
--- NOTE | 2016-12-02 | NUR ---
VITALS REFUSED/ CIWA DEFERRED 0000 vitals were refused. CIWA deferred d/t pt lying in bed with eyes closed noted to be asleep. Respirations 16, breathing is even and unlabored. Will continue to monitor.
[2016-12-02 04:00] VITALS: BP 121/81
[2016-12-02] MEDS: KETOROLAC TROMETHAMINE 30 MG INJ IM PRN (05:38)
--- NOTE | 2016-12-02 05:38 | NUR ---
PRN TORADOL Pt complains of left side cheek/head pain 01/09. PRN Toradol administered as ordered for pain. Breathing is even and unlabored, safety measures in place.
--- NOTE | 2016-12-02 06:05 | NUR ---
DISCHARGE NOTE Pt is in stable condition, vitals WNL, skin is intact, denies any suicidal or homicidal ideations, all discharge paper work signed and dated, pt was discharged from [facility] on 12/02/16 at 0605. Pt left the building with all of his medications, belongings and prescriptions. notified.
== END 2016-12-02 06:05 | disposition home or self-care (01) | DRG 895 ==
LOC: SRC 11-28 21:35
PROVIDERS: ADMIT Internal Medicine; ATTEND Internal Medicine
PROC: HZ2ZZZZ Detoxification Services for Substance Abuse Treatment (ICD-10-PCS; principal; 2016-11-28)
PROC: HZ31ZZZ Individual Counseling for Substance Abuse Treatment, Behavioral (ICD-10-PCS; 2016-11-29)
DX: F10.230 Alcohol dependence with withdrawal, uncomplicated (principal); D68.59 Other primary thrombophilia; Y90.9 Presence of alcohol in blood, level not specified; Z86.718 Personal history of other venous thrombosis and embolism; Z79.01 Long term (current) use of anticoagulants; F41.9 Anxiety disorder, unspecified; J45.20 Mild intermittent asthma, uncomplicated; F32.9 Major depressive disorder, single episode, unspecified; I10 Essential (primary) hypertension; R22.9 Localized swelling, mass and lump, unspecified; G43.909 Migraine, unspecified, not intractable, without status migrainosus; Z81.8 Family history of other mental and behavioral disorders; Z81.1 Family history of alcohol abuse and dependence; Z83.2 Family history of diseases of the blood and blood-forming organs and certain disorders involving the immune mechanism
CPT/HCPCS: 36415; 80307; 83690; 83735; 84443; 85025; 85610; 86580; 86592; 86705; 86803; 87340; 87806; G0480; J1885; J3490

== ENCOUNTER → 2016-11-30 | Outpatient (CLI) | payer OTHER ==
[~2016-11-30] MED LIST changes: +ALBU8.5H8 IH; +IOHEXOL 300MG/ML 100 ML INFUS..BTL ONE; +IV NORMAL SALINE 250 ML IV ONE; +LISI2.5T2 PO; +[UNRECOGNIZED DRUG - REMARK]
== END | disposition home or self-care (01) ==
LOC: CT 12:41
PROVIDERS: ATTEND Internal Medicine
DX: R51 Headache (principal); F19.20 Other psychoactive substance dependence, uncomplicated; Z86.718 Personal history of other venous thrombosis and embolism
CPT/HCPCS: 70470; J7050; Q9967